=== PATIENT | male | born 1975 | race African-American/Black ===

== ENCOUNTER 2023-08-08 20:07 | Emergency (ER) | payer OTHER ==
[2023-08-08 20:12] VITALS: BP 143/84; PULSE 65; RESP 17; TEMP 98.2; BMI 27.3
[2023-08-08 21:18] LABS: EOS % 5.3 % (0-4.5); HEMATOCRIT 38.9 % (35.4-49); HEMOGLOBIN 13.4 GM/dL (11.7-16.9); LYMPH % 27.9 % (8-40); MCH 27.1 pg (25.7-33.7); MCHC 34.3 g/dl (32.0-35.9); MEAN CELL VOLUME 79.1 fl (80-96); MEAN PLT VOLUME 8.8 fl (7.5-11.1); MONO % 8.4 % (3.8-10.2); NEUT % 57.4 % (42.8-82.8); PLATELET COUNT 286 10^3/uL (134-434); RBC 4.92 M/mm3 (4.00-5.60); RDW 14.7 % (11.9-15.9); WHITE BLOOD COUNT 7.7 K/mm3 (4.0-10.0)
[2023-08-08 21:38] LABS: ACTIVATED PTT 31.6 SECONDS (25.2-36.5)
[2023-08-08 21:40] LABS: POTASSIUM 4.7 mmol/L (3.5-5.1)
[2023-08-08 21:42] LABS: ALBUMIN 3.5 g/dl (3.4-5.0); BLOOD UREA NITROGEN 23.6 mg/dL (7-18)
[2023-08-08 21:45] LABS: CREATININE 1.4 mg/dL (0.55-1.3); INR 0.91 (0.83-1.09); PROTHROMBIN TIME (PATIENT) 10.6 SEC (9.7-13.0); URIC ACID 6.8 mg/dL (2.6-7.2)
[2023-08-08 21:47] LABS: BILIRUBIN,TOTAL 0.4 mg/dL (0.2-1)
[2023-08-08] MEDS ORDERED: LACTATED RINGERS SOLUTION 1000 ML INFUS.BAG IV ONE (22:11)
[2023-08-08] MEDS ORDERED: ACETAMINOPHEN INJECTION 100 ML IVPB ONE (22:24)
[2023-08-08] MEDS ORDERED: ACETAMINOPHEN 1000 MG/100 ML BAG IVPB ONE (22:24)
== END 2023-08-09 00:42 | disposition home or self-care (01) ==
LOC: JER 20:07
PROC: 3E033NZ Introduction of Analgesics, Hypnotics, Sedatives into Peripheral Vein, Percutaneous Approach (ICD-10-PCS; principal; 2023-08-08)
DX: R22.42 Localized swelling, mass and lump, left lower limb (principal); M25.572 Pain in left ankle and joints of left foot; M35.4 Diffuse (eosinophilic) fasciitis
CPT/HCPCS: 36415; 71275-TC; 73610-TC-LT-FY; 73630-TC-LT; 80053; 84550; 85025; 85379; 85610; 85730; 86225; 93971-TC; 99285-25

== ENCOUNTER 2024-08-08 11:39 | Emergency (ER) | payer BC, OTHER ==
[2024-08-08 11:48] VITALS: TEMP 99.1; BMI 27.9
[2024-08-08] MEDS ORDERED: MAG HYDROX/AL HYDROX/SIMETH 30 ML UNIT-DOSE CUP ONE (13:59)
[2024-08-08] MEDS ORDERED: FAMOTIDINE 20 MG/50 ML IVPB 20 MG/50 ML MG IVPB ONE (13:59)
[2024-08-08] MEDS ORDERED: ACETAMINOPHEN INJECTION 100 ML ONE (13:59)
[2024-08-08 14:02] LABS: PH,URINE 5.5 (5.0-8.0); URINE APPEARANCE CLEAR; URINE BILIRUBIN NEGATIVE (NEGATIVE); URINE COLOR YELLOW; URINE GLUCOSE (UA) NEGATIVE (NEGATIVE); URINE KETONE NEGATIVE (NEGATIVE); URINE LEUK ESTERASE NEGATIVE (NEGATIVE); URINE NITRITE NEGATIVE (NEGATIVE); URINE PROTEIN NEGATIVE (NEGATIVE); URINE UROBILINOGEN 0.2 mg/dL (0.2-1.0)
[2024-08-08 14:04] LABS: BASO % 0.8 % (0-2.0); EOS % 2.7 % (0-4.5); HEMATOCRIT 41.7 % (35.4-49); HEMOGLOBIN 13.9 GM/dL (11.7-16.9); LYMPH % 24.9 % (8-40); MCH 26.2 pg (25.7-33.7); MCHC 33.3 g/dl (32.0-35.9); MEAN CELL VOLUME 78.8 fl (80-96); MEAN PLT VOLUME 8.3 fl (7.5-11.1); NEUT % 65.6 % (42.8-82.8); PLATELET COUNT 284 10^3/uL (134-434); RBC 5.29 M/mm3 (4.00-5.60); RDW 14.5 % (11.9-15.9); WHITE BLOOD COUNT 7.6 K/mm3 (4.0-10.0)
[2024-08-08 14:09] LABS: INR 0.94 (0.83-1.09); PROTHROMBIN TIME (PATIENT) 10.8 SEC (9.7-13.0)
[2024-08-08 14:11] LABS: ACTIVATED PTT 30.2 SECONDS (25.2-36.5)
[2024-08-08] MEDS: MAG HYDROX/AL HYDROX/SIMETH 30 ML UNIT-DOSE CUP PO ONE (14:14)
[2024-08-08] MEDS: ACETAMINOPHEN 1000 MG/100 ML BAG IVPB ONE (14:15)
[2024-08-08] MEDS: FAMOTIDINE 20 MG/50 ML IVPB 20 MG/50 ML MG IVPB ONE (14:15)
[2024-08-08 14:25] LABS: POTASSIUM 4.2 mmol/L (3.5-5.1)
[2024-08-08 14:29] LABS: ALBUMIN 3.8 g/dl (3.4-5.0); BLOOD UREA NITROGEN 18.3 mg/dL (7-18); CALCIUM 9.4 mg/dL (8.5-10.1)
[2024-08-08 14:32] LABS: CREATININE 1.4 mg/dL (0.55-1.3)
[2024-08-08 14:34] LABS: TOT PROT 6.9 g/dl (6.4-8.2)
[2024-08-08 15:27] LABS: HIV INTERPRETATION NEGATIVE (NEGATIVE)
[2024-08-08 16:03] LABS: BILIRUBIN,TOTAL 1.4 mg/dL (0.2-1)
[2024-08-08 16:33] VITALS: BP 124/82; PULSE 48; RESP 18
[2024-08-08] MEDS: CIPROFLOXACIN 500 MG TABLET (RESTRICTED TO ID) PO ONE (18:16)
== END 2024-08-08 18:17 | disposition home or self-care (01) ==
LOC: JER 11:39
PROC: 3E033GC Introduction of Other Therapeutic Substance into Peripheral Vein, Percutaneous Approach (ICD-10-PCS; principal; 2024-08-08)
PROC: 3E033NZ Introduction of Analgesics, Hypnotics, Sedatives into Peripheral Vein, Percutaneous Approach (ICD-10-PCS; 2024-08-08)
DX: R10.84 Generalized abdominal pain (principal); R11.0 Nausea
CPT/HCPCS: 36415; 74177-TC; 80053; 81003; 83605; 83690; 83735; 85025; 85610; 85730; 86803; 87086; 87389; 99285-25; J0131

== ENCOUNTER 2024-10-13 17:32 | Emergency (ER) | payer BC, OTHER ==
[2024-10-13 18:07] VITALS: BMI 27.9
[2024-10-13] MEDS ORDERED: FAMOTIDINE 20 MG/50 ML IVPB 20 MG/50 ML MG IVPB ONE (19:46)
[2024-10-13] MEDS ORDERED: MAG HYDROX/AL HYDROX/SIMETH 30 ML UNIT-DOSE CUP ONE (19:46)
[2024-10-13] MEDS ORDERED: ACETAMINOPHEN INJECTION 100 ML ONE (19:46)
[2024-10-13 19:53] LABS: EOS % 5.6 % (0-4.5); LYMPH % 36.9 % (8-40); MCH 26.1 pg (25.7-33.7); MCHC 32.6 g/dl (32.0-35.9); MEAN PLT VOLUME 8.1 fl (7.5-11.1); NEUT % 49.5 % (42.8-82.8); PLATELET COUNT 339 10^3/uL (134-434); RDW 14.7 % (11.9-15.9); WHITE BLOOD COUNT 6.2 K/mm3 (4.0-10.0)
[2024-10-13] MEDS: ACETAMINOPHEN 1000 MG/100 ML BAG IVPB ONE (19:57)
[2024-10-13] MEDS: FAMOTIDINE 20 MG/50 ML IVPB 20 MG/50 ML MG IVPB ONE (19:58)
[2024-10-13] MEDS: MAG HYDROX/AL HYDROX/SIMETH 30 ML UNIT-DOSE CUP PO ONE (19:58)
[2024-10-13 20:16] LABS: POTASSIUM 4.3 mmol/L (3.5-5.1)
[2024-10-13 20:18] LABS: CALCIUM 9.6 mg/dL (8.5-10.1)
[2024-10-13 20:19] LABS: ALBUMIN 3.6 g/dl (3.4-5.0); BLOOD UREA NITROGEN 19.1 mg/dL (7-18)
[2024-10-13 20:22] LABS: PH,URINE 5.5 (5.0-8.0); URINE APPEARANCE CLEAR; URINE BILIRUBIN NEGATIVE (NEGATIVE); URINE COLOR YELLOW; URINE GLUCOSE (UA) NEGATIVE (NEGATIVE); URINE KETONE NEGATIVE (NEGATIVE); URINE LEUK ESTERASE NEGATIVE (NEGATIVE); URINE NITRITE NEGATIVE (NEGATIVE); URINE PROTEIN NEGATIVE (NEGATIVE); URINE UROBILINOGEN 0.2 mg/dL (0.2-1.0)
[2024-10-13 20:22] LABS: CREATININE 1.4 mg/dL (0.55-1.3)
[2024-10-13 20:23] LABS: TOT PROT 6.9 g/dl (6.4-8.2)
[2024-10-13] MEDS ORDERED: ONDANSETRON 4 MG/2 ML VIAL ONE (20:45)
[2024-10-13] MEDS: ONDANSETRON 4 MG/2 ML VIAL IVPUSH ONE (20:55)
[2024-10-13] MEDS: ONDANSETRON 4 MG/2 ML VIAL IVPB ONE (22:03)
[2024-10-14] MEDS ORDERED: KETOROLAC TROMETHAMINE 30 MG/1 ML VIAL ONE (00:12)
[2024-10-14] MEDS: KETOROLAC TROMETHAMINE 30 MG/1 ML VIAL IVPUSH ONE (00:18)
[2024-10-14 00:44] VITALS: BP 110/68; RESP 16; TEMP 97.7
[2024-10-14 02:11] VITALS: PULSE 53
== END 2024-10-14 02:11 | disposition home or self-care (01) ==
LOC: JER 17:32
PROC: 3E033GC Introduction of Other Therapeutic Substance into Peripheral Vein, Percutaneous Approach (ICD-10-PCS; principal; 2024-10-13)
PROC: 3E033NZ Introduction of Analgesics, Hypnotics, Sedatives into Peripheral Vein, Percutaneous Approach (ICD-10-PCS; 2024-10-13)
PROC: 3E033GC Introduction of Other Therapeutic Substance into Peripheral Vein, Percutaneous Approach (ICD-10-PCS; 2024-10-13)
PROC: 3E0333Z Introduction of Anti-inflammatory into Peripheral Vein, Percutaneous Approach (ICD-10-PCS; 2024-10-14)
DX: K52.9 Noninfective gastroenteritis and colitis, unspecified (principal); R10.30 Lower abdominal pain, unspecified
CPT/HCPCS: 36415; 74177-TC; 80053; 81003; 83690; 85025; 87086; 99285-25; J0131